=== PATIENT | male | born 1960 | race Caucasian/White ===

== ENCOUNTER 2024-01-12 08:49 | Emergency (ER) | payer SELFPAY ==
[~2024-01-12] VITALS: Ht 177.8 cm; Wt 86.2 kg
[2024-01-12 09:03] VITALS: BP_SYST 147; PULSE 84; RESP 20; TEMP 97; O2SAT 97
[2024-01-12 09:13] VITALS: BP_SYST 147; PULSE 84; RESP 20; TEMP 97; O2SAT 97
== END 2024-01-12 09:13 ==
LOC: SED 08:49
DX: I10 Essential (primary) hypertension (principal); F41.9 Anxiety disorder, unspecified
CPT/HCPCS: 99283